=== PATIENT | male | born 1960 | race Caucasian/White ===

== ENCOUNTER → 2016-05-25 11:57 | Outpatient (CLI) | payer OTHER | END | disposition home or self-care (01) | LOC: RAD 12-20 08:30 | DX: M25.569 Pain in unspecified knee (principal); Z53.8 Procedure and treatment not carried out for other reasons ==

== ENCOUNTER → 2017-09-19 | Outpatient (CLI) | payer OTHER ==
--- NOTE | 2017-09-19 15:37 | RADIOLOGY REPORT (SQ) ---
EXAM DESCRIPTION: ELBOW LEFT >2 VIEWS COMPLETED DATE/TIME: 09/19/2017 2:06 pm REASON FOR STUDY: LOCALIZED SWELLING,MASS AND LUMP,LEFT UPPER LIMB R22.32 LOCALIZED SWELLING, MASS AND LUMP, LEFT UPPER LIMB COMPARISON: None. NUMBER OF VIEWS: Four views. TECHNIQUE: AP, lateral, and both oblique radiographic images acquired of the left elbow. LIMITATIONS: None. FINDINGS: MINERALIZATION: Normal. BONES: No acute fracture or dislocation. No worrisome bone lesions. JOINT: No effusion. SOFT TISSUES: There is swelling in the soft tissues of the upper forearm anteriorly. OTHER: No other significant finding. IMPRESSION: Soft tissue swelling. No osseous abnormality. TECHNICAL DOCUMENTATION: JOB ID: [id number] [employer]- All Rights Reserved Reading location - IP/workstation name: [email or web address]
== END ==
LOC: CCC 13:54
DX: R22.32 Localized swelling, mass and lump, left upper limb (principal)

== ENCOUNTER → 2017-10-11 | Outpatient (CLI) | payer OTHER ==
--- NOTE | 2017-10-11 13:53 | RADIOLOGY REPORT (SQ) ---
EXAM DESCRIPTION: SHOULDER RIGHT 2 OR MORE VIEWS COMPLETED DATE/TIME: 10/11/2017 1:36 pm REASON FOR STUDY: RT SHOULDER PAIN M25.511 PAIN IN RIGHT SHOULDER M79.9 SOFT TISSUE DISORDER, UNSP ECIFIED COMPARISON: None. NUMBER OF VIEWS: Three views. TECHNIQUE: Internal rotation, external rotation, and Y view images acquired of the right shoulder. LIMITATIONS: None. FINDINGS: MINERALIZATION: Normal. BONES: No acute fracture or dislocation. No worrisome bone lesions. JOINTS: The humeral head appears subluxed inferiorly in relation to the glenoid on the internal and e xternal rotated images. There appears to be a normal relationship on the Y-view. VISUALIZED LUNGS AND RIBS: No pneumothorax. No rib fracture. SOFT TISSUES: No radiopaque foreign body. OTHER: No other significant finding. IMPRESSION: The humeral head appears subluxed inferiorly in relation to the glenoid on the internal and external rotated images as noted above. Clinical correlation is recommended. NO RADIOGRAPHIC GEOVANI DENCE OF ACUTE INJURY. TECHNICAL DOCUMENTATION: JOB ID: [id number] [employer]- All Rights Reserved Reading location - IP/workstation name: [email or web address]
== END ==
LOC: OD 13:24
DX: M25.511 Pain in right shoulder (principal); M79.9 Soft tissue disorder, unspecified

== ENCOUNTER → 2017-11-02 | Outpatient (CLI) | payer OTHER ==
--- NOTE | 2017-11-02 14:06 | RADIOLOGY REPORT (SQ) ---
EXAM DESCRIPTION: CT LT UPPER EXTREMITY WITHOUT COMPLETED DATE/TIME: 11/02/2017 1:13 pm REASON FOR STUDY: RIGHT SHOULDER PAIN (M25.511), SOFT TISSUE DISORDER (M79.9) M79.9 SOFT TISSUE DIS ORDER, UNSPECIFIED left elbow pain COMPARISON: Left elbow films 09/19/2017 TECHNIQUE: Axial imaging performed through the left elbow with reformatted oblique coronal and obliq ue sagittal imaging windowed for bone and soft tissues. All CT scanners at this facility use dose modulation, iterative reconstruction, and/or weight based d osing when appropriate to reduce radiation dose to as low as reasonably achievable (ALARA). [facility]: Dose Right [facility]: CareDose [facility]: Dose Right [facility]: Teradose 4D [facility]: [employer] RADIATION DOSE: CT Rad equipment meets quality standard of care and radiation dose reduction techniq ues were employed. CTDIvol: 4.6 mGy. DLP: 114 mGy-cm. mGy. LIMITATIONS: None. FINDINGS: SOFT TISSUES: No soft tissue masses BONY ARCHITECTURE: Normal bone density. No lytic or blastic lesions. No fracture. RADIOHUMERAL JOINT: Joint space is well maintained. No capitellar osteochondral defect ULNOHUMERAL JOINT: Joint space is well maintained. No joint effusion. No bony spurring or gross loo se bodies BONY OLECRANON AND TRICEPS ATTACHMENT: Intact RADIAL TUBEROSITY AND DISTAL BICEPS ATTACHMENT: Grossly Intact OTHER: No other significant finding. IMPRESSION: No left elbow joint effusion or fracture. No left elbow intra-articular loose body TECHNICAL DOCUMENTATION: JOB ID: [id number] Quality ID # [id number]: Final reports with documentation of one or more dose reduction techniques (e.g., Au tomated exposure control, adjustment of the mA and/or kV according to patient size, use of iterative reconstruction technique) 2010 [employer]- All Rights Reserved Reading location - IP/workstation name: [email or web address]
== END ==
LOC: RAD 12:46
DX: M25.511 Pain in right shoulder (principal); M79.89 Other specified soft tissue disorders

== ENCOUNTER → 2017-11-07 | Outpatient (CLI) | payer OTHER ==
--- NOTE | 2017-11-07 17:37 | RADIOLOGY REPORT (SQ) ---
EXAM DESCRIPTION: CT RT UPPER EXTREMITY WITHOUT COMPLETED DATE/TIME: 11/07/2017 5:05 pm REASON FOR STUDY: RIGHT SHOULDER PAIN M25.511 PAIN IN RIGHT SHOULDER COMPARISON: None. TECHNIQUE: Axial imaging performed through the rightshoulder with reformatted oblique coronal and ob lique sagittal imaging windowed for bone and soft tissues. All CT scanners at this facility use dose modulation, iterative reconstruction, and/or weight based d osing when appropriate to reduce radiation dose to as low as reasonably achievable (ALARA). [facility]: Dose Right [facility]: CareDose [facility]: Dose Right [facility]: Teradose 4D [facility]: [employer] RADIATION DOSE: CT Rad equipment meets quality standard of care and radiation dose reduction techniq ues were employed. CTDIvol: 12.4 mGy. DLP: 329 mGy-cm. mGy. LIMITATIONS: No contrast. FINDINGS: SOFT TISSUES: No significant abnormality. BONY ARCHITECTURE: No significant abnormality. GLENOHUMERAL JOINT: No significant abnormality. ACROMION AND AC JOINT: No significant abnormality. ROTATOR CUFF: No significant abnormality. GLENOID, LABRUM AND BICEPS: No significant abnormality. OTHER: No other significant finding. IMPRESSION: Normal noncontrast CT of the right shoulder. For further information consider MRI. 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 TECHNICAL DOCUMENTATION: JOB ID: [id number] Quality ID # [id number]: Final reports with documentation of one or more dose reduction techniques (e.g., Au tomated exposure control, adjustment of the mA and/or kV according to patient size, use of iterative reconstruction technique) 2010 [employer]- All Rights Reserved Reading location - IP/workstation name: [email or web address]
== END ==
LOC: RAD 16:33
DX: M25.511 Pain in right shoulder (principal); M79.89 Other specified soft tissue disorders